=== PATIENT | male | born 1995 | race Caucasian/White ===

== ENCOUNTER 2022-11-28 08:00 | Emergency (ER) | payer SELFPAY ==
[~2022-11-28] VITALS: Ht 182.9 cm; Wt 108.9 kg
[2022-11-28 08:00] VITALS: BP 130/77
[2022-11-28] MEDS ORDERED: TORADOL IM STA (08:19)
[2022-11-28] MEDS ORDERED: TORADOL ONE (08:29)
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
--- NOTE | 2022-11-28 08:47 | DIREP ---
PROCEDURE:XRAY TIB & FIB 2 VW-RT COMPARISON:[facility], , XRAY ANKLE MIN 3VWS-RT, 11/28/2022, 08:24 AM. INDICATIONS:pain after trauma FINDINGS: BONES:A mildly displaced fracture is seen of the distal fibula and nondisplaced fracture of the posterior malleolus. JOINTS:Normal. SOFT TISSUES:Normal. OTHER:No additional findings. CONCLUSION:There is a mildly displaced fracture of the distal fibula and nondisplaced fracture of the posterior malleolus. Dictated by: Judd Gill M.D. on 11/28/2022 at 08:45 AM
--- NOTE | 2022-11-28 08:49 | DIREP ---
PROCEDURE:XRAY FOOT MIN 3 VWS-RT COMPARISON:[facility], , XRAY ANKLE MIN 3VWS-RT, 11/28/2022, 08:24 AM. INDICATIONS:pain after trauma FINDINGS: BONES:A mildly displaced oblique fracture is seen of the distal fibula and nondisplaced fracture of the posterior malleolus. Additionally, a small avulsion fracture seen of the medial malleolus. JOINTS:Normal. SOFT TISSUES:Soft tissue swelling seen of the ankle. OTHER:No additional findings. CONCLUSION:A mildly displaced oblique fracture is seen of the distal fibula and nondisplaced fracture of the posterior malleolus and small avulsion fracture of the medial malleolus. No fracture of the foot is seen. Dictated by: Judd Gill M.D. on 11/28/2022 at 08:46 AM
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
== END 2022-11-28 09:36 | disposition home or self-care (01) ==
LOC: ER 08:00
DX: S82.891A Other fracture of right lower leg, initial encounter for closed fracture (principal); F17.210 Nicotine dependence, cigarettes, uncomplicated; Z88.5 Allergy status to narcotic agent; X58.XXXA Exposure to other specified factors, initial encounter; Y93.89 Activity, other specified; Y92.89 Other specified places as the place of occurrence of the external cause; Y99.8 Other external cause status
CPT/HCPCS: 99284; 96372; 73590; 73610; 73630; J1885

== ENCOUNTER 2022-12-08 06:40 | Day surgery (SDC) | payer SELFPAY ==
[2022-12-06 12:00] VITALS: BP 120/73
[~2022-12-08] VITALS: Ht 182.9 cm; Wt 107.5 kg
[2022-12-08] VITALS (10 sets, daily range): BP systolic 126–165; BP diastolic 66–82
[~2022-12-08 06:40] MED LIST: ANCEF ONE; LACTATED RINGERS 1,000 ML ONE; NS 100ML 100 ML IV ONE; TRAM50TA PO
[2022-12-08] MEDS: LACTATED RINGERS 1,000 ML IV SCH (07:23)
[2022-12-08 07:27] LABS: BASOPHIL % 0.3 % (0.0-0.2); EOSINOPHIL # 0.2 10^3/uL (0.0-0.2); EOSINOPHIL % 2.4 % (0.0-5.0); LYMPHOCYTES # 2.76 10^3/uL1 (1.0-4.8); LYMPHOCYTES % 39.7 % (24.0-44.0); MEAN CORP HGB 30.5 pg (26-34); MONOCYTES # 0.8 10^3/uL (0.3-0.8); MONOCYTES % 11.5 % (5.0-12.0); NEUTROPHIL # 3.2 10^3/uL (1.8-7.7); RED CELL DISTRIBUTION WIDTH 13.7 % (11.5-14.5)
[2022-12-08] MEDS ORDERED: NS 3000ML IRR IR ONE (07:36)
[2022-12-08] MEDS ORDERED: SODIUM CHLORIDE IRR BOTTLE IR ONE (07:36)
[2022-12-08 07:40] LABS: CARBON DIOXIDE 26.4 mmol/L (20.0-32)
[2022-12-08] MEDS ORDERED: MARCAINE 0.5% ONE (08:07)
[2022-12-08] MEDS ORDERED: EXPAREL 266 MG/20 ML VIAL IJ ONE (08:09)
[2022-12-08] MEDS ORDERED: DECADRON ONE (09:00)
[2022-12-08] MEDS ORDERED: DIPRIVAN IV ONE (09:00)
[2022-12-08] MEDS ORDERED: SUBLIMAZE ONE (09:00)
[2022-12-08] MEDS ORDERED: LACTATED RINGERS 1,000 ML ONE (09:00)
[2022-12-08] MEDS ORDERED: OFIRMEV 100 ML IV ONE (09:00)
[2022-12-08] MEDS ORDERED: ZOFRAN ONE (09:00)
[2022-12-08] MEDS ORDERED: XYLOCAINE 2% 5ML VIAL ONE (09:00)
[2022-12-08] MEDS: ANCEF 2 GM in NS 100ML 100 ML IV ONE (09:16)
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
[2022-12-08] MEDS ORDERED: ULTRAM ONE (11:19)
[2022-12-08] MEDS: ULTRAM PO STA (11:21)
== END 2022-12-08 11:57 | disposition home or self-care (01) ==
LOC: SDC 06:40
PROVIDERS: ATTEND Orthopaedic Surgery
DX: S82.841A Displaced bimalleolar fracture of right lower leg, initial encounter for closed fracture (principal); Z90.49 Acquired absence of other specified parts of digestive tract; Z98.890 Other specified postprocedural states; Z79.899 Other long term (current) drug therapy; X58.XXXA Exposure to other specified factors, initial encounter; Y93.89 Activity, other specified; Y92.89 Other specified places as the place of occurrence of the external cause; Y99.8 Other external cause status
CPT/HCPCS: 27814; 64450; 76942; 80053; 85025; 36415; J7120 ×2; A4217 ×2; C1713 ×4; A4649; J0690; J1100; J0131; J3490 ×2; J2001; J2405; J3010; 76000; C1716; C1719; C9290